=== PATIENT | male | born 2000 | race Caucasian/White ===

== ENCOUNTER 2018-05-21 22:51 | Emergency (ER) | payer OTHER ==
[~2018-05-21] VITALS: Ht 180.3 cm; Wt 68.0 kg
[2018-05-21] MEDS ORDERED: ONDA4TAB7 PO (23:06)
--- NOTE | 2018-05-21 23:09 | ED.ADGEN ---
Past History Past Medical History: No Pertinent History Past Surgical History: No Surgical History Alcohol Use: None Drug Use: None Adult General Chief Complaint Chief Complaint vomiting HPI HPI 17 years old presented to the emergency department with vomiting he vomited 2 he had a Parmesan chicken at 2 old daughter in tonight felt nauseous after he ate Vomited feels great right now , no abdominal pain no diarrhea Review of Systems Review of Systems Constitutional: Denies fever or chills [] Eyes: Denies change in visual acuity, redness, or eye pain [] HENT: Denies nasal congestion or sore throat [] Respiratory: Denies cough or shortness of breath [] Cardiovascular: No additional information not addressed in HPI [] GI: Denies abdominal pain, nausea, vomiting, bloody stools or diarrhea [] : Denies dysuria or hematuria [] Musculoskeletal: Denies back pain or joint pain [] Integument: Denies rash or skin lesions [] Neurologic: Denies headache, focal weakness or sensory changes [] Endocrine: Denies polyuria or polydipsia [] All other systems were reviewed and found to be within normal limits, except as documented in this note. Current Medications Current Medications Current Medications Medications (Trade) Dose Ordered Sig/Sara Start Time Stop Time Status Last Admin Dose Admin Ondansetron HCl (Zofran Odt) 4 mg 1X ONCE 05/21/18 23:15 05/21/18 23:16 UNV Allergies Allergies Allergies Coded Allergies Type Severity Reaction Last Updated Verified No Known Drug Allergies 05/21/18 No Physical Exam Physical Exam Constitutional: Well developed, well nourished, no acute distress, non-toxic appearance. [] HENT: Normocephalic, atraumatic, bilateral external ears normal, oropharynx moist, no oral exudates, nose normal. [] Eyes: PERRLA, EOMI, conjunctiva normal, no discharge. [] Neck: Normal range of motion, no tenderness, supple, no stridor. [] Cardiovascular:Heart rate regular rhythm, no murmur [] Lungs & Thorax: Bilateral breath sounds clear to auscultation [] Abdomen: Bowel sounds normal, soft, no tenderness, no masses, no pulsatile masses. [] Skin: Warm, dry, no erythema, no rash. [] Back: No tenderness, no CVA tenderness. [] Extremities: No tenderness, no cyanosis, no clubbing, ROM intact, no edema. [] Neurologic: Alert and oriented X 3, normal motor function, normal sensory function, no focal deficits noted. [] Psychologic: Affect normal, judgement normal, mood normal. [] Current Patient Data Vital Signs Vital Signs Date Time Temp Pulse Resp B/P (MAP) Pulse Ox O2 Delivery O2 Flow Rate FiO2 05/21/18 22:51 98.0 71 18 99 Room Air EKG EKG [] Radiology/Procedures Radiology/Procedures [] Course & Med Decision Making Course & Med Decision Making Pertinent Labs and Imaging studies reviewed. (See chart for details) [] Final Impression Final Impression [] Problems: (1) Vomiting Qualifiers: Qualified Codes: R11.2 - Nausea with vomiting, unspecified Dragon Disclaimer Dragon Disclaimer This electronic medical record was generated, in whole or in part, using a voice recognition dictation system. LISA HIGGINBOTHAM MD May 21, 2018 23:09
[2018-05-21] MEDS: ONDANSETRON ODT 4 MG TAB.RAPDIS PO ONE (23:11)
[2018-05-21 23:17] VITALS: BP 120/70
== END 2018-05-21 23:17 | disposition home or self-care (01) ==
LOC: ER 22:51
DX: R11.2 Nausea with vomiting, unspecified (principal)
CPT/HCPCS: 99283; Q0162

== ENCOUNTER 2018-06-20 22:05 | Emergency (ER) | payer OTHER ==
[~2018-06-20] VITALS: Ht 177.8 cm; Wt 66.3 kg
[~2018-06-20 22:05] MED LIST: ONDA4TAB7 PO
[2018-06-20] MEDS ORDERED: IV NORMAL SALINE 1,000ML 1,000 ML IV SCH (22:30)
[2018-06-20] MEDS ORDERED: ONDANSETRON PF 4 MG/2 ML VIAL. IV ONE (22:45)
[2018-06-20] MEDS ORDERED: DIPHENOXYLATE/ATROPINE TABLET. PO ONE (22:45)
[2018-06-20 22:55] LABS: BASO # 0.1 x10^3/uL (0.0-0.2); BASO % 1 % (0-3); EOS # 0.2 x10^3/uL (0.0-0.7); EOS % 2 % (0-3); HEMATOCRIT 41.1 % (39.0-53.0); HEMOGLOBIN 14.3 g/dL (13.0-17.5); LYMPH # 3.2 x10^3/uL (1.0-4.8); LYMPH % 41 % (24-48); MEAN CORPUSCULAR HEMOGLOBIN 32 pg (25-35); MEAN CORPUSCULAR HGB CONC 35 g/dL (31-37); MEAN CORPUSCULAR VOLUME 92 fL (79-100); MONO # 0.4 x10^3/uL (0.0-1.1); MONO % 6 % (0-9); NEUT # 3.9 x10^3uL (1.8-7.7); NEUT % 50 % (31-73); PLATELET COUNT 238 x10^3/uL (140-400); RED BLOOD COUNT 4.48 x10^6/uL (4.30-5.70); RED CELL DISTRIBUTION WIDTH 13.4 % (11.5-14.5); WHITE BLOOD COUNT 7.8 x10^3/uL (4.0-11.0)
[2018-06-20 23:07] LABS: ALBUMIN 4.6 g/dL (3.4-5.0); ALBUMIN/GLOBULIN RATIO 1.4 (1.0-1.7); CREATININE 1.1 mg/dL (0.7-1.3); GFR 86.2; POTASSIUM 4.2 mmol/L (3.5-5.1); TOTAL BILIRUBIN 0.4 mg/dL (0.2-1.0); TOTAL PROTEIN 7.9 g/dL (6.4-8.2)
[2018-06-21] MEDS ORDERED: DIPH1TAB PO (00:01)
[2018-06-21] MEDS ORDERED: ONDA4TAB7 PO (00:01)
--- NOTE | 2018-06-21 00:02 | PHYS DOC ---
Past History Past Medical History: No Pertinent History Past Surgical History: No Surgical History Alcohol Use: None Drug Use: None Adult General Chief Complaint Chief Complaint: NAUSEA/VOMITING/DIARRHEA HPI HPI Patient is a 17-year-old male who presents with complaint of nausea with vomiting and diarrhea that started yesterday. Patient states that he had eaten [place] restaurant yesterday and had been there with other family members who also got sick. Patient states that he is not sure whether or not this is food poisoning. He denies any fever. He denies any blood in his vomitus or stool. He states that his last episode of vomiting was this morning and primarily he has just had diarrhea. Patient states symptoms are worsened if he tries to eat or drink anything. Review of Systems Review of Systems Constitutional: Denies fever or chills [] Respiratory: Denies cough or shortness of breath [] Cardiovascular: No additional information not addressed in HPI [] GI: Denies abdominal pain. Complains of nausea with vomiting and diarrhea [] Integument: Denies rash or skin lesions [] Neurologic: Denies headache, focal weakness or sensory changes [] All other systems were reviewed and found to be within normal limits, except as documented in this note. Current Medications Current Medications Current Medications Medications (Trade) Dose Ordered Sig/Sara Start Time Stop Time Status Last Admin Dose Admin Diphenoxylate HCl/ Atropine (Lomotil) 2 tab 1X ONCE 06/20/18 22:45 06/20/18 22:46 DC 06/20/18 22:51 2 TAB Ondansetron HCl (Zofran) 4 mg 1X ONCE 06/20/18 22:45 06/20/18 22:46 DC 06/20/18 22:52 4 MG Sodium Chloride 1,000 ml @ 1,000 mls/hr Q1H 06/20/18 22:30 06/20/18 23:29 DC 06/20/18 22:53 1,000 MLS/HR Allergies Allergies Allergies Coded Allergies Type Severity Reaction Last Updated Verified No Known Drug Allergies 05/21/18 No Physical Exam Physical Exam Constitutional: Well developed, well nourished, no acute distress, non-toxic appearance. [] HENT: Normocephalic, atraumatic, bilateral external ears normal, oropharynx moist, no oral exudates, nose normal. [] Eyes: PERRLA, EOMI, conjunctiva normal, no discharge. [] Neck: Normal range of motion, no tenderness, supple, no stridor. [] Cardiovascular:Heart rate regular rhythm, no murmur [] Lungs & Thorax: Bilateral breath sounds clear to auscultation [] Abdomen: Bowel sounds normal, soft, no tenderness. [] Skin: Warm, dry, no erythema, no rash. [] Extremities: No tenderness, no cyanosis, no clubbing, ROM intact, no edema. [] Neurologic: Alert and oriented X 3, no focal deficits noted. [] Current Patient Data Vital Signs Vital Signs Date Time Temp Pulse Resp B/P (MAP) Pulse Ox O2 Delivery O2 Flow Rate FiO2 06/20/18 22:36 98.2 79 16 97 Room Air Lab Results Laboratory Tests Test 06/20/18 22:36 White Blood Count 7.8 x10^3/uL (4.0-11.0) Red Blood Count 4.48 x10^6/uL (4.30-5.70) Hemoglobin 14.3 g/dL (13.0-17.5) Hematocrit 41.1 % (39.0-53.0) Mean Corpuscular Volume 92 fL (79-100) Mean Corpuscular Hemoglobin 32 pg (25-35) Mean Corpuscular Hemoglobin Concent 35 g/dL (31-37) Red Cell Distribution Width 13.4 % (11.5-14.5) Platelet Count 238 x10^3/uL (140-400) Neutrophils (%) (Auto) 50 % (31-73) Lymphocytes (%) (Auto) 41 % (24-48) Monocytes (%) (Auto) 6 % (0-9) Eosinophils (%) (Auto) 2 % (0-3) Basophils (%) (Auto) 1 % (0-3) Neutrophils # (Auto) 3.9 x10^3uL (1.8-7.7) Lymphocytes # (Auto) 3.2 x10^3/uL (1.0-4.8) Monocytes # (Auto) 0.4 x10^3/uL (0.0-1.1) Eosinophils # (Auto) 0.2 x10^3/uL (0.0-0.7) Basophils # (Auto) 0.1 x10^3/uL (0.0-0.2) Sodium Level 143 mmol/L (136-145) Potassium Level 4.2 mmol/L (3.5-5.1) Chloride Level 104 mmol/L (98-107) Carbon Dioxide Level 29 mmol/L (21-32) Anion Gap 10 (6-14) Blood Urea Nitrogen 21 mg/dL (8-26) Creatinine 1.1 mg/dL (0.7-1.3) Estimated GFR (Cockcroft-Gault) 86.2 BUN/Creatinine Ratio 19 (6-20) Glucose Level 98 mg/dL (70-99) Calcium Level 10.0 mg/dL (8.5-10.1) Total Bilirubin 0.4 mg/dL (0.2-1.0) Aspartate Amino Transferase (AST) 13 U/L (15-37) L Alanine Aminotransferase (ALT) 16 U/L (16-63) Alkaline Phosphatase 68 U/L (46-116) Total Protein 7.9 g/dL (6.4-8.2) Albumin 4.6 g/dL (3.4-5.0) Albumin/Globulin Ratio 1.4 (1.0-1.7) EKG EKG [] Radiology/Procedures Radiology/Procedures [] Course & Med Decision Making Course & Med Decision Making Pertinent Labs and Imaging studies reviewed. (See chart for details) [] Dragon Disclaimer Dragon Disclaimer This electronic medical record was generated, in whole or in part, using a voice recognition dictation system. Departure Departure: Impression: Primary Impression: Gastroenteritis Disposition: 01 HOME, SELF-CARE Condition: STABLE Referrals: BRIDGETTE LE PA-C (PCP) Patient Instructions: Viral Gastroenteritis Scripts Diphenoxylate Hcl/Atropine (LOMOTIL TABLET) 1 Each Tablet 1 TAB PO TID PRN for DIARRHEA, #15 TAB Prov: GERALD PEOPLES Jr. DO 06/21/18 Ondansetron Hcl (ZOFRAN) 4 Mg Tablet 4 MG PO Q8HRS PRN for NAUSEA, #12 TAB Prov: GERALD PEOPLES Jr. DO 06/21/18 GERALD PEOPLES Jr. DO Jun 21, 2018 00:02
[2018-06-21 00:05] LABS: BILIRUBIN,URINE NEG (NEG); CLARITY,URINE CLEAR; COLOR,URINE YELLOW; GLUCOSE,URINE NEG (NEG); UROBILINOGEN,URINE 1 mg/dL (0.2 mg/dL)
[2018-06-21 00:06] LABS: BACTERIA,URINE 0 /HPF (0-FEW); NITRITE,URINE NEG (NEG); RBC,URINE 0 /HPF (0-2); SQUAMOUS EPITHELIAL CELL,UR FEW /LPF
[2018-06-21 00:12] VITALS: BP 100/54
== END 2018-06-21 00:21 | disposition home or self-care (01) ==
LOC: ER 22:05
DX: K52.9 Noninfective gastroenteritis and colitis, unspecified (principal)
CPT/HCPCS: 36415; 80053; 81001; 85025; 96361; 96374; 99283; J2405; J7030

== ENCOUNTER 2018-07-16 15:16 | Emergency (ER) | payer OTHER ==
[~2018-07-16 15:16] MED LIST changes: +DIPH1TAB PO
--- NOTE | 2018-07-16 15:42 | PHYS DOC ---
Past History Past Medical History: No Pertinent History Past Surgical History: No Surgical History Alcohol Use: None Drug Use: None Adult General Chief Complaint Chief Complaint: GROIN PAIN [facility] HPI 17-year-old male presents with left groin pain. The patient first noticed this pain about a month and half ago. He has avoid getting it checked out because he had a PT test coming up. He is in the [employer]. Over the last couple weeks he has noticed the bulge in the groin area seems to be a bit larger and it is hurting every day. He denies any kind of physical activity he has a pain in that area. His testicle is not larger. He has had no dysuria or urinary frequency. He cannot think of a specific event that started the pain. He is able to "push the mass back in", but it returns when he stands up. He denies nausea, vomiting, diarrhea, fever, chills. Review of Systems Review of Systems Constitutional: Denies fever or chills [] Eyes: Denies change in visual acuity, redness, or eye pain [] HENT: Denies nasal congestion or sore throat [] Respiratory: Denies cough or shortness of breath [] Cardiovascular: No additional information not addressed in HPI [] GI: Denies abdominal pain, nausea, vomiting, bloody stools or diarrhea [] : Left groin pain[] Musculoskeletal: Denies back pain or joint pain [] Integument: Denies rash or skin lesions [] Neurologic: Denies headache, focal weakness or sensory changes [] Endocrine: Denies polyuria or polydipsia [] All other systems were reviewed and found to be within normal limits, except as documented in this note. Allergies Allergies Allergies Coded Allergies Type Severity Reaction Last Updated Verified No Known Drug Allergies 05/21/18 No Physical Exam Physical Exam Constitutional: Well developed, well nourished, no acute distress, non-toxic appearance. [] HENT: Normocephalic, atraumatic, bilateral external ears normal, oropharynx moist, no oral exudates, nose normal. [] Eyes: PERRLA, EOMI, conjunctiva normal, no discharge. [] Neck: Normal range of motion, no tenderness, supple, no stridor. [] Cardiovascular:Heart rate regular rhythm, no murmur [] Lungs & Thorax: Bilateral breath sounds clear to auscultation [] Abdomen: Bowel sounds normal, soft, no tenderness, no masses, no pulsatile ma sses. [] Skin: Warm, dry, no erythema, no rash. [] Back: No tenderness, no CVA tenderness. [] Extremities: No tenderness, no cyanosis, no clubbing, ROM intact, no edema. [] Neurologic: Alert and oriented X 3, normal motor function, normal sensory function, no focal deficits noted. [] Psychologic: Affect normal, judgement normal, mood normal. : Normal external exam, circumcised, bilateral descended testicles equal in size, soft mass in the left inguinal region easily reducible. [] Current Patient Data Vital Signs Vital Signs Date Time Temp Pulse Resp B/P (MAP) Pulse Ox O2 Delivery O2 Flow Rate FiO2 07/16/18 15:20 98.5 96 20 20 Room Air EKG EKG [] Radiology/Procedures Radiology/Procedures [] Impressions: CT ABD PELV W/ IV CONTRST ONLY Indication: INGUINAL HERNIA X 1 MONTH Exposure: One or more of the following individualized dose reduction techniques were utilized for this examination: 1. Automated exposure control 2. Adjustment of the mA and/or kV according to patient size 3. Use of iterative reconstruction technique. Technique: Intravenous contrast was given. No oral contrast per request. Lung bases are clear. Liver and spleen appear unremarkable. Pancreas is difficult to distinguish from adjacent unopacified bowel but no definite peripancreatic fluid or inflammatory change. No adrenal mass. Kidneys demonstrate symmetric enhancement without hydronephrosis or dominant mass. Aorta nonaneurysmal. Incidentally noted retroaortic left renal vein. No calcified gallstone. No significant lymph node enlargement. No significant small bowel distention. No evidence of acute colitis. Appendix is at least partially visualized appearing within normal limits. No significant pneumoperitoneum or ascites. No evidence of pelvic mass. Urinary bladder is within normal limits. Vertebral body height and alignment are intact. Transitional anatomy at the lumbosacral junction. There is a linear fluid collection dissecting from the left lower quadrant distally into the visualized upper left inguinal canal and spermatic cord, measures by 10 cm longitudinal by 2.6 cm transverse by 2.2 cm transverse. IMPRESSION: 1. Nonspecific fluid accumulation in the left inguinal canal, uncertain etiology or significance. 2. No otherwise no acute findings in the abdomen or pelvis. Electronically signed by: Janet Oliva MD (07/16/2018 5:16 PM) [facility] DICTATED AND SIGNED BY: JANET OLIVA MD DATE: 07/16/18 1018 CC: RAQUEL BULLOCK DO; BRIDGETTE LE PA-C ~ Course & Med Decision Making Course & Med Decision Making Pertinent Labs and Imaging studies reviewed. (See chart for details) By my read, the patient does have a left inguinal hernia. The official read does not use the word hernia. See the report for details. I provided a copy of the images and the official report for the patient. He is stable for discharge at this time. [] Dragon Disclaimer Dragon Disclaimer This electronic medical record was generated, in whole or in part, using a voice recognition dictation system. Departure Departure: Impression: Primary Impression: Left inguinal hernia Disposition: 01 HOME, SELF-CARE Condition: STABLE Referrals: BRIDGETTE LE PA-C (PCP) Patient Instructions: Inguinal Hernia, Adult RAQUEL BULLOCK DO Jul 16, 2018 15:42
[2018-07-16] MEDS ORDERED: IOHEXOL 240 MG/ML 50ML VIAL. PO ONE (16:00)
[2018-07-16] MEDS ORDERED: IOHEXOL 300 MG/ML 75 ML VIAL. IV ONE (16:00)
--- NOTE | 2018-07-16 17:19 | RAD ---
CT ABD PELV W/ IV CONTRST ONLY Indication: INGUINAL HERNIA X 1 MONTH Exposure: One or more of the following individualized dose reduction techniques were utilized for this examination: 1. Automated exposure control 2. Adjustment of the mA and/or kV according to patient size 3. Use of iterative reconstruction technique. Technique: Intravenous contrast was given. No oral contrast per request. Lung bases are clear. Liver and spleen appear unremarkable. Pancreas is difficult to distinguish from adjacent unopacified bowel but no definite peripancreatic fluid or inflammatory change. No adrenal mass. Kidneys demonstrate symmetric enhancement without hydronephrosis or dominant mass. Aorta nonaneurysmal. Incidentally noted retroaortic left renal vein. No calcified gallstone. No significant lymph node enlargement. No significant small bowel distention. No evidence of acute colitis. Appendix is at least partially visualized appearing within normal limits. No significant pneumoperitoneum or ascites. No evidence of pelvic mass. Urinary bladder is within normal limits. Vertebral body height and alignment are intact. Transitional anatomy at the lumbosacral junction. There is a linear fluid collection dissecting from the left lower quadrant distally into the visualized upper left inguinal canal and spermatic cord, measures by 10 cm longitudinal by 2.6 cm transverse by 2.2 cm transverse. IMPRESSION: 1. Nonspecific fluid accumulation in the left inguinal canal, uncertain etiology or significance. 2. No otherwise no acute findings in the abdomen or pelvis. Electronically signed by: Omari Oliva MD (07/16/2018 5:16 PM) [facility]
[2018-07-16 17:42] VITALS: BP 119/68
== END 2018-07-16 17:43 | disposition home or self-care (01) ==
LOC: ER 15:16
DX: K40.90 Unilateral inguinal hernia, without obstruction or gangrene, not specified as recurrent (principal)
CPT/HCPCS: 74177; 99284-25

== ENCOUNTER 2018-07-22 13:21 | Emergency (ER) | payer OTHER ==
[~2018-07-22] VITALS: Ht 177.8 cm; Wt 67.0 kg
[2018-07-22 13:52] LABS: BASO % 0 % (0-3); EOS # 0.3 x10^3/uL (0.0-0.7); EOS % 4 % (0-3); HEMATOCRIT 41.8 % (39.0-53.0); HEMOGLOBIN 14.6 g/dL (13.0-17.5); LYMPH # 1.6 x10^3/uL (1.0-4.8); LYMPH % 21 % (24-48); MEAN CORPUSCULAR HEMOGLOBIN 32 pg (25-35); MEAN CORPUSCULAR HGB CONC 35 g/dL (31-37); MEAN CORPUSCULAR VOLUME 92 fL (79-100); MONO # 0.7 x10^3/uL (0.0-1.1); MONO % 10 % (0-9); NEUT # 4.8 x10^3uL (1.8-7.7); NEUT % 65 % (31-73); PLATELET COUNT 200 x10^3/uL (140-400); RED BLOOD COUNT 4.53 x10^6/uL (4.30-5.70); RED CELL DISTRIBUTION WIDTH 13.1 % (11.5-14.5); WHITE BLOOD COUNT 7.3 x10^3/uL (4.0-11.0)
--- NOTE | 2018-07-22 14:02 | PHYS DOC ---
Past History Past Medical History: No Pertinent History Past Surgical History: No Surgical History Alcohol Use: None Drug Use: None Adult General Chief Complaint Chief Complaint: CHEST PAIN [facility] HPI 17-year-old male presents to emergency room with upper abdominal pain/chest pain. Patient states that he has had some intermittent discomfort in this area for the last 1 week. He is also had one bowel movement in the last 5 days. He became concerned today, because the pain started in the epigastric area around 7 PM last night and has been pretty consistent. He rates it a 7 out of 10. He d escribes it as a squeezing pain. He denies trauma or falls. He has no known congenital heart disease. Movement and exercise seemed to make the pain worse. The pain is currently 7 out of 10. He denies fever or chills. He has not taken any medications for this pain. Review of Systems Review of Systems Constitutional: Denies fever or chills [] Eyes: Denies change in visual acuity, redness, or eye pain [] HENT: Denies nasal congestion or sore throat [] Respiratory: Denies cough or shortness of breath [] Cardiovascular: No additional information not addressed in HPI [] GI: Denies abdominal pain, nausea, vomiting, bloody stools or diarrhea [] : Denies dysuria or hematuria [] Musculoskeletal: Denies back pain or joint pain [] Integument: Denies rash or skin lesions [] Neurologic: Denies headache, focal weakness or sensory changes [] Endocrine: Denies polyuria or polydipsia [] All other systems were reviewed and found to be within normal limits, except as documented in this note. Allergies Allergies Allergies Coded Allergies Type Severity Reaction Last Updated Verified No Known Drug Allergies 05/21/18 No Physical Exam Physical Exam Constitutional: Well developed, well nourished, thin, no acute distress, non- toxic appearance. [] HENT: Normocephalic, atraumatic, bilateral external ears normal, oropharynx moist, no oral exudates, nose normal. [] Eyes: PERRLA, EOMI, conjunctiva normal, no discharge. [] Neck: Normal range of motion, no tenderness, supple, no stridor. [] Cardiovascular:Heart rate regular rhythm, no murmur [] Lungs & Thorax: Bilateral breath sounds clear to auscultation [] Abdomen: Bowel sounds normal, soft, epigastric tenderness, no masses, no pulsatile masses. [] Skin: Warm, dry, no erythema, no rash. [] Back: No tenderness, no CVA tenderness. [] Extremities: No tenderness, no cyanosis, no clubbing, ROM intact, no edema. [] Neurologic: Alert and oriented X 3, normal motor function, normal sensory function, no focal deficits noted. [] Psychologic: Affect normal, judgement normal, mood normal. [] Current Patient Data Lab Results Laboratory Tests Test 07/22/18 13:34 White Blood Count 7.3 x10^3/uL (4.0-11.0) Red Blood Count 4.53 x10^6/uL (4.30-5.70) Hemoglobin 14.6 g/dL (13.0-17.5) Hematocrit 41.8 % (39.0-53.0) Mean Corpuscular Volume 92 fL (79-100) Mean Corpuscular Hemoglobin 32 pg (25-35) Mean Corpuscular Hemoglobin Concent 35 g/dL (31-37) Red Cell Distribution Width 13.1 % (11.5-14.5) Platelet Count 200 x10^3/uL (140-400) Neutrophils (%) (Auto) 65 % (31-73) Lymphocytes (%) (Auto) 21 % (24-48) L Monocytes (%) (Auto) 10 % (0-9) H Eosinophils (%) (Auto) 4 % (0-3) H Basophils (%) (Auto) 0 % (0-3) Neutrophils # (Auto) 4.8 x10^3uL (1.8-7.7) Lymphocytes # (Auto) 1.6 x10^3/uL (1.0-4.8) Monocytes # (Auto) 0.7 x10^3/uL (0.0-1.1) Eosinophils # (Auto) 0.3 x10^3/uL (0.0-0.7) Basophils # (Auto) 0.0 x10^3/uL (0.0-0.2) EKG EKG Sinus rhythm, a, right axis deviation, no ST elevations or depressions.[] Radiology/Procedures Radiology/Procedures [] Course & Med Decision Making Course & Med Decision Making Pertinent Labs and Imaging studies reviewed. (See chart for details) The patient's labs are unremarkable. His troponin is negative. His chest x-ray is unremarkable. His KUB does not show significant stool retention. The patient 's symptoms do not appear to be cardiopulmonary in nature. I will try a GI cocktail to see if this helps. The GI cocktail has made the patient feel bit better at this time. I discussed his results with him and we will do a trial of Nexium for 14 days. I will provide a prescription for this. If this does not seem to improve the patient's symptoms, he will seek further evaluation. He is stable for discharge at this time. [] Dragon Disclaimer Dragon Disclaimer This electronic medical record was generated, in whole or in part, using a voice recognition dictation system. Departure Departure: Impression: Primary Impression: Epigastric abdominal pain Additional Impression: GERD (gastroesophageal reflux disease) Disposition: 01 HOME, SELF-CARE Condition: STABLE Referrals: BRIDGETTE LE PA-C (PCP) Patient Instructions: Abdominal Pain, [id number], Gastroesophageal Reflux Disease, Adult, [id number] Scripts Esomeprazole Magnesium (NEXIUM CAPSULE) 40 Mg Capsule.dr 40 MG PO DAILYAC for GERD for 14 Days, #14 CAP 0 Refills Prov: RAQUEL BULLOCK DO 07/22/18 Problem Qualifiers Additional Impression: GERD (gastroesophageal reflux disease) Esophagitis presence: without esophagitis Qualified Codes: K21.9 - Gastro- esophageal reflux disease without esophagitis RAQUEL BULLOCK DO July 22, 2018 14:02
--- NOTE | 2018-07-22 14:02 | EKG ---
[address] [address] Test Date: 2018-07-22 Test Time: 13:43:56 Pat Name: MATY PHELPS Department: Room: Gender: M [employer]: OWEN : 2000 Requested By: RAQUEL BULLOCK Order Number: [id number] Reading MD: Joseph Fletcher MD Measurements Intervals Fowler Rate: 88 P: 56 SD: 170 QRS: 115 QRSD: 90 T: 31 QT: 338 QTc: 412 Interpretive Statements SINUS RHYTHM Electronically Signed On 08-13-2018 11:46:23 CDT by Joseph Fletcher MD
--- NOTE | 2018-07-22 14:06 | RAD ---
Chest radiograph 07/22/2018 1:26 PM INDICATION: Chest pain COMPARISON: None available TECHNIQUE: Frontal and lateral views of the chest are provided. FINDINGS: The cardiomediastinal silhouette is within normal limits. There are no pleural effusions. There is no pulmonary vascular congestion. There is no pneumothorax. The lungs are clear. No significant osseous abnormality is identified. IMPRESSION: No acute cardiopulmonary process. Electronically signed by: Isabel Cottrell MD (07/22/2018 2:03 PM) [id number]
[2018-07-22 14:09] LABS: ALBUMIN 4.3 g/dL (3.4-5.0); ALBUMIN/GLOBULIN RATIO 1.2 (1.0-1.7); CALCIUM 9.8 mg/dL (8.5-10.1); CREATININE 1.2 mg/dL (0.7-1.3); POTASSIUM 3.6 mmol/L (3.5-5.1); TOTAL BILIRUBIN 0.6 mg/dL (0.2-1.0)
--- NOTE | 2018-07-22 14:16 | RAD ---
AP view of the abdomen Clinical indications: Constipation. FINDINGS: There is a small calcified phlebolith of the left side of the anatomic pelvis. No radiopaque stones are seen within either kidney. No significant fecal retention is seen. No obstructive bowel pattern is evident. The osseous structures are intact. IMPRESSION: No acute abnormality. Electronically signed by: Alberto Sue MD (07/22/2018 2:12 PM) [facility]
[2018-07-22] MEDS ORDERED: LIDO:MAALOX 1:1 20 ML SINGLE DOSE. PO ONE (14:30)
[2018-07-22 14:41] VITALS: BP 112/59
[2018-07-22] MEDS ORDERED: ESOM40CA PO (14:57)
== END 2018-07-22 15:00 | disposition home or self-care (01) ==
LOC: ER 13:21
DX: K21.9 Gastro-esophageal reflux disease without esophagitis (principal)
CPT/HCPCS: 36415; 71046; 74018; 80053; 84484; 85025; 93005; 99285

== ENCOUNTER 2018-09-22 06:57 | Emergency (ER) | payer OTHER ==
[~2018-09-22] VITALS: Ht 177.8 cm; Wt 68.5 kg
[~2018-09-22 06:57] MED LIST changes: +ESOM40CA PO
[2018-09-22 07:11] VITALS: BP 117/85
[2018-09-22] MEDS ORDERED: METO10TA81 PO (07:28)
[2018-09-22] MEDS ORDERED: MELO7.5T29 PO (07:28)
--- NOTE | 2018-09-22 07:28 | PHYS DOC ---
Past History Past Medical History: Constipation, Other Past Surgical History: No Surgical History Smoking: Cigarettes, Less than 1pk/day Alcohol Use: None Drug Use: None Adult General Chief Complaint Chief Complaint: HEADACHE HPI HPI Patient is a 18-year-old male presents with a left-sided headache that started last night. He has had some nausea, no vomiting. Took ibuprofen approximately 90 minutes prior to arrival without any significant improvement. There is photophobia present. Patient does have a previous history of headaches like this without any prior diagnosis. This is not worst headache of life. No fever. No weakness, numbness, or tingling. Patient does have a family history of migraines. Pain is moderate to severe in intensity. There is no radiation of the pain.[] Review of Systems Review of Systems Constitutional: Denies fever or chills [] Eyes: Denies change in visual acuity, redness, or eye pain [] HENT: Denies nasal congestion or sore throat [] Respiratory: Denies cough or shortness of breath [] Cardiovascular: No chest pain or palpitations[] GI: Denies abdominal pain, nausea, vomiting, bloody stools or diarrhea [] : Denies dysuria or hematuria [] Musculoskeletal: Denies back pain or joint pain [] Integument: Denies rash or skin lesions [] Neurologic: Denies focal weakness or sensory changes, see history of present illness [] Endocrine: Denies polyuria or polydipsia [] All other systems were reviewed and found to be within normal limits, except as documented in this note. Allergies Allergies Allergies Coded Allergies Type Severity Reaction Last Updated Verified No Known Drug Allergies 05/21/18 No Physical Exam Physical Exam Constitutional: Well developed, well nourished, no acute distress sitting in a darkened room, non-toxic appearance. [] HENT: Normocephalic, atraumatic, bilateral external ears normal, oropharynx moist, no oral exudates, nose normal. [] Eyes: PERRLA, EOMI, conjunctiva normal, no discharge. [] Neck: Normal range of motion, no tenderness, supple, no stridor. [] Cardiovascular:Heart rate regular rhythm, no murmur [] Lungs & Thorax: Bilateral breath sounds clear to auscultation [] Abdomen: Not examined. [] Skin: Warm, dry, no erythema, no rash. [] Back: No tenderness, no CVA tenderness. [] Extremities: No tenderness, no cyanosis, no clubbing, ROM intact, no edema. [] Neurologic: Alert and oriented X 3, normal motor function, normal sensory function, no focal deficits noted. Normal gait, normal rapid repetitive and alternating movements [] Psychologic: Affect normal, judgement normal, mood normal. [] EKG EKG [] Radiology/Procedures Radiology/Procedures [] Course & Med Decision Making Course & Med Decision Making Pertinent Labs and Imaging studies reviewed. (See chart for details) ED course: Patient arrived, was placed in bed, and tolerated exam well. He was given medicine to help with the discomfort as well as the nausea. This was medicine that would not sedate him given that he has no one available to drive him home. At 8:10 AM, patient reported feeling much better. He was discharged in improved condition with all questions answered. Medical decision making: Patient does not appear to have a subarachnoid bleed. No evidence of a stroke syndrome. No evidence of meningitis or encephalitis. No evidence of systemic toxicity. No evidence of an intractable headache.[] Dragon Disclaimer Dragon Disclaimer This electronic medical record was generated, in whole or in part, using a voice recognition dictation system. Departure Departure: Impression: Primary Impression: Headache Disposition: HOME, SELF-CARE Condition: IMPROVED Referrals: BRIDGETTE LE PA-C (PCP) Follow-up in 2 days Patient Instructions: General Headache Without Cause, Migraine Headache Additional Instructions: Drink plenty of fluids. At the onset of your next headache like this try 1/4 teaspoon of rachell dissolved in apple juice or water. Follow-up with your regular doctor in 2 days. Return to the ER if worsening headache, change in vision, or any other concerns. Scripts Metoclopramide Hcl (REGLAN) 10 Mg Tablet 10 MG PO QID for nausea and vomiting, #30 TAB Prov: AZUL MANZO DO 09/22/18 Meloxicam (MELOXICAM) 7.5 Mg Tablet 7.5 MG PO DAILY for PAIN, #20 TAB Prov: AZUL MANZO DO 09/22/18 Problem Qualifiers Primary Impression: Headache Headache type: unspecified Headache chronicity pattern: episodic headache Intractability: not intractable Qualified Codes: R51 - Headache AZUL MANZO DO Sep 22, 2018 07:28
[2018-09-22] MEDS ORDERED: ONDANSETRON ODT 4 MG TAB.RAPDIS PO ONE (07:30)
[2018-09-22] MEDS ORDERED: KETOROLAC 15 MG/ML VIAL. IM ONE (07:30)
== END 2018-09-22 08:22 | disposition home or self-care (01) ==
LOC: ER 06:57
DX: R51 Headache (principal); F17.210 Nicotine dependence, cigarettes, uncomplicated
CPT/HCPCS: 96372; 99283; J1885; Q0162

== ENCOUNTER → 2021-02-09 | Outpatient (CLI) | payer OTHER ==
[~2021-02-09] MED LIST changes: +MELO7.5T29 PO; +METO10TA81 PO
--- NOTE | 2021-02-09 15:01 | RAD ---
EXAM: Soft tissue ultrasound left groin. HISTORY: Status post left inguinal hernia repair. Palpable mass. COMPARISON: 07/16/2018. FINDINGS: Sonographic evaluation of the left inguinal region was performed. A well-circumscribed fluid collection corresponds with the palpable region of concern. It measures 6. 6 x 3.1 x 2.5 cm and appears to be along the spermatic cord, just superior to the left testicle. No h ernia or bowel loops are identified. IMPRESSION: 1. A 6.6 x 3.1 cm well-defined fluid collection superior to the left testicle has been present chroni diana and suggests a spermatic cord hydrocele. Ongoing management is recommended. Electronically signed by: Fernando Callejas MD (02/09/2021 2:58 PM) [id number]
== END ==
LOC: US 14:23
PROVIDERS: ATTEND Family Medicine Sports Medicine
DX: R19.09 Other intra-abdominal and pelvic swelling, mass and lump (principal)
CPT/HCPCS: 76881